=== PATIENT | female | born 1935 | race Caucasian/White ===

== ENCOUNTER 2025-01-15 12:19 | Emergency (ER) | payer MEDICARE ==
[~2025-01-15] VITALS: Ht 162.6 cm; Wt 54.5 kg
--- NOTE | 2025-01-15 13:17 | Physician Documentation ---
History of Present Illness ~ Chief Complaint: Hip pain Stated Complaint: HIP PAIN Time Seen by MD: 12:46 Primary Medical Doctor: SUE Source: patient Mode of Arrival: Ambulatory Exam Limitations: no limitations HPI Chief Complaint: Muscle spasms in lower extremities, lower extremity pain Caveat: None Independent Historians: None History of Present Illness: Patient is a 89-year-old woman who comes in complaining of muscle spasms in her lower extremities feet and thighs that have been severe since last Saturday. Over the last three days she states she has she has had to use a walker because she is too weak in the left lower extremity. Patient denies any bowel incontinence or urinary retention. No fever. No abdominal pain. Patient states that she is able to work out the muscle spasms. She then goes on to say that she had a recent MRI for spinal stenosis in the lower back. 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 Patient is not on any blood thinners. Review of systems: All systems were reviewed and are negative except for what is indicated in the history of present illness. Past Medical History: Lymphoma of lumbar spine , hyperlipidemia Past Surgical History: Kyphoplasty lumbar spine Social History: No tobacco use, no alcohol use, no drug use Medications: Reviewed as documented Nursing Notes Allergies: Reviewed as documented in Nursing Notes Medication Reconciliation Allergies: Coded Allergies: No Known Allergies (Unverified , 01/15/25) Review of Systems All Other Systems at this time: Reviewed and Negative ROS Patient denies any other acute symptoms other than above. All other systems are negative Physical Exam Vital Signs: RN Vital Signs have been reviewed: Yes, Heart Rate: 82, Respiratory Rate: 16, BP: 127/76, Pulse Oximetry: 98, Weight: 54.550 Pulse Oximetry Reflects: adequate oxygenation Physical Exam General Appearance: Mild distress HEENT: Normal OP, moist oral mucosa, PERRL, EOMI Neck: supple, normal ROM, trachea midline Pulmonary: No respiratory distress, CTA, BS equal Cardiac: RRR, no murmur, rub or gallop, GI: nondistended, soft, nontender, normal bowel sounds, no guarding, no rebound Extremities: normal ROM, no swelling, non-tender Skin: intact, dry, warm, no rashes Neuro: AAOx3, speech is clear, weakness in the left lower extremity is difficult to ascertain because of pain left lower extremity. However she is weak in the hip flexors and leg extension on exam compared to the right. Psych: normal affect, good eye contact, no apparent hallucination, normal speech Progress Results/Orders Results/Orders Orders - VY WHITEHEAD MD Mri Head (01/15/25 13:04) Mri Lumbar Spine (01/15/25 13:04) Chest,Single View (01/15/25 13:38) Cult Urine + [place] [address] (01/15/25 13:59) Completed Orders - VY WHITEHEAD MD Mri Head (01/15/25 13:04) Mri Lumbar Spine (01/15/25 13:04) Electrocardiogram (01/15/25 13:38) Pt Inr (01/15/25 13:38) PTT (01/15/25 13:38) Chest,Single View (01/15/25 13:38) CMP (01/15/25 13:38) Ua W/Microscopic, Cult If Ind (01/15/25 13:38) Morphine 4mg/Ml Inj. (Morphine Inj.) (01/15/25 15:15) Ondansetron Inj. (Zofran 4mg/2ml Vial) (01/15/25 15:15) Cbc/Diff (01/15/25 18:00) Vital Signs 01/15/25 01/15/25 01/15/25 01/15/25 12:28 15:17 15:25 20:04 Pulse 82 68 Resp 16 18 18 16 B/P (MAP) 127/76 114/63 (80) Pulse Ox 98 98 O2 Flow Rate 0 01/15/25 01/15/25 01/15/25 01/15/25 20:08 21:24 21:28 22:21 Temp 97.7 Pulse 72 73 72 Resp 16 16 14 16 B/P (MAP) 118/61 (80) 129/71 (90) 145/79 (101) Pulse Ox 95 97 98 O2 Flow Rate 0 01/15/25 22:26 Resp 16 Laboratory Tests Test 01/15/25 13:38 01/15/25 13:50 Urine Specimen Description Cln catch midstream Urine Color Yellow Urine Clarity Clear Urine pH 6.0 Urine Specific [place] 1.010 Urine Protein Negative Urine Glucose (UA) Negative Urine Ketones Negative Urine Occult Blood Negative Urine Nitrite Negative Urine Bilirubin Negative Urine Urobilinogen 0.2 Urine Leukocyte Esterase Small H Urine RBC 10-20 Urine WBC Tntc H Urine WBC Clumps Few Urine Squamous Epithelial Cells Few Urine Bacteria 4+ Urine Mucus Few Urine Culture Indicated Indicated Volume Urine Centrifuged 10 ml Urine Comment White Blood Count 6.2 Red Blood Count 4.44 Hemoglobin 13.5 Hematocrit 39.5 Mean Corpuscular Volume 89.0 Mean Corpuscular Hemoglobin 30.5 Mean Corpuscular Hemoglobin Concent 34.2 Red Cell Distribution Width 13.6 Platelet Count 186 Mean Platelet Volume 8.6 Neutrophils (%) (Auto) 79.9 H Lymphocytes (%) (Auto) 12.6 L Monocytes (%) (Auto) 5.6 Eosinophils (%) (Auto) 1.4 Basophils (%) (Auto) 0.5 Neutrophils # (Auto) 5.0 Lymphocytes # (Auto) 0.8 L Monocytes # (Auto) 0.3 Eosinophils # (Auto) 0.1 Basophils # (Auto) 0.0 CBC Comment Prothrombin Time 10.8 INR International Normalized Ratio 1.1 Activated Partial Thromboplast Time 24 Coagulation Comments Sodium Level 143 Potassium Level 4.0 Chloride Level 105 Carbon Dioxide Level 30.2 Anion Gap 8 Blood Urea Nitrogen 27 H Creatinine 0.79 Estimated GFR/1.73 m2 69 BUN/Creatinine Ratio 34.2 H Glucose Level 164 H Calcium Level 8.5 Total Bilirubin 0.4 Aspartate Amino Transf (AST/SGOT) 17 Alanine Aminotransferase (ALT/SGPT) 25 Alkaline Phosphatase 101 Total Protein 6.4 Albumin 3.7 Globulin 2.7 Albumin/Globulin Ratio 1.4 Chemistry Comments Microbiology Date/Time Source Procedure Growth Status 01/15/25 13:59 Urine Clean Catch Midstream Urine Culture - Preliminary Culture received. Resulted Medical Decision Making Findings Differential diagnosis includes but is not limited to: Acute CVA, spinal stenosis, cauda equina syndrome MRI of brain without IV contrast, indication: Left lower extremity weakness Impression: No evidence of acute intracranial abnormalities. MRI of lumbar spine without IV contrast, indication: Lower extremity weakness with history of spinal canal stenosis Impression: 1. There is a large heterogeneous lesion at the level of the L3/L4 vertebral body level spinal canal measuring 1.0 x 0.7 x 3.0 cm. This appears to be extradural in location. This results in severe spinal canal stenosis at the L3 vertebral body level. There is moderate spinal canal stenosis at the L4 level. Recommend MRI lumbar spine with contrast to further characterize this lesion /mass/neoplasm. Stat neurosurgical consultation recommended for further management. 2. Multiple compression deformities of the L1 through L5 vertebral bodies as described above with associated mild marrow edema signal. These could represent subacute or chronic fractures. Correlate with clinical history and pain symptoms. 3. More pronounced marrow edema and T1 hypointense signal at S3/S4 concerning for fracture versus aggressive lesion/ metastatic disease/neoplasm. Laboratory data independent interpretation: CBC: CMP: Unremarkable Urinalysis: Emergency department course/medical decision-making: Patient was a pleasant 89-year-old woman who presents with complaints of pain in the left lower extremity and muscle spasms I have gotten worse. But upon further questioning she has not been able to walk secondary to the pain and weakness in the left lower extremity that began three days ago. Patient states that she had a recent MRI of the lumbar spine for spinal stenosis. Patient is not having any other neurological symptoms like bowel incontinence or urinary retention. Concern for recurrence of the lymphoma causing L3 spinal stenosis secondary to compression of a small lesion/mass measuring approximately 1 x 3 cm. Consultation/communications: 5:52 p.m.: Request for call to Neurosurgery at [facility] Departure Time of Disposition: 17:53 Disposition: 02 SHORT TERM HOSPITAL Impression: Primary Impression: Spinal stenosis L3 Condition: Guarded Education Educated: Patient Educated regarding: diagnosis, treatment Signature Scribe Signature: No scribe Attestation: No scribe VY WHITEHEAD MD January 15, 2025 13:17
[2025-01-15] MEDS ORDERED: LIDO700A47 TOP (13:20)
[2025-01-15 13:48] LABS: BILIRUBIN,URINE NEGATIVE (Neg); CLARITY,URINE CLEAR (Clear); COLOR,URINE YELLOW (Yellow); GLUCOSE, URINE NEGATIVE (Neg); KETONES,URINE NEGATIVE (Neg); LEUKOCYTE ESTERASE ,URINE SMALL (Neg); NITRITES, URINE NEGATIVE (Neg); OCCULT BLOOD,URINE NEGATIVE (Neg); PROTEIN,URINE NEGATIVE (Neg); UROBILINOGEN,URINE 0.2 E.U/dL (0.2-1.0)
[2025-01-15 13:57] LABS: UA COLLECTION TYPE CLN CATCH MIDSTREAM
[2025-01-15 13:58] LABS: WBC,URINE TNTC /HPF (0-4)
[2025-01-15 13:59] LABS: BACTERIA,URINE 4+ /HPF (Neg); MUCUS STRANDS FEW /LPF (Neg); SQUAMOUS EPITHELIAL CELL,UR FEW /LPF (FEW); WBC CLUMPS,URINE FEW /HPF (NEGATIVE)
--- NOTE | 2025-01-15 14:06 | RADIOLOGY REPORT ---
CHEST RADIOGRAPH Indication: Stroke Alert Technique: Single frontal view of the chest was obtained Comparison: None FINDINGS: Lines and Tubes: None Lungs: No focal consolidation. Senescent changes of the lungs. Pleura: No effusion. No pneumothorax. Cardiomediastinal contours: Unremarkable Bones: No acute osseous abnormality. IMPRESSION: No acute cardiopulmonary disease.
[2025-01-15 14:11] LABS: APTT 24 SECONDS (22-32); INR 1.1 INR; PROTHROMBIN TIME 10.8 SECONDS (9.0-12.0)
[2025-01-15 14:15] LABS: ALANINE AMINOTRANSFERASE 25 U/L (12-78); ALBUMIN 3.7 G/DL (3.4-5.0); ALBUMIN/GLOBULIN RATIO 1.4 (1.1-1.5); ALKALINE PHOSPHATASE 101 IU/L (46-116); ANION GAP 8 (8-16); ASPARTATE AMINO TRANSFERASE 17 U/L (10-37); BILIRUBIN,TOTAL 0.4 MG/DL (0.1-1.0); BLOOD UREA NITROGEN 27 MG/DL (7-18); BUN/CREATININE RATIO 34.2 (10.0-20.0); CALCIUM 8.5 MG/DL (8.5-10.1); CHLORIDE 105 MMOL/L (99-107); CREATININE 0.79 MG/DL (0.40-0.90); GLUCOSE 164 MG/DL (70-104); SODIUM 143 MMOL/L (135-145); TOTAL CARBON DIOXIDE 30.2 MMOL/L (24-32); TOTAL PROTEIN 6.4 G/DL (6.4-8.2); eCRCL 42 ML/MIN; eGFR 69 ML/MIN
--- NOTE | 2025-01-15 14:50 | ELECTROCARDIOGRAPH REPORT ---
[facility] Test Date: 2025-01-15 Test Time: 13:50:59 Pat Name: HOOD NOWAK Department: EMERGENCY ROOM Room: Gender: F Chemical Treatment Operator: PATRICK : [id number] Requested By: VY WHITEHEAD Order Number: [id number] Reading MD: Measurements Intervals [place] Rate: 71 P: 56 OK: 225 QRS: -26 QRSD: 97 T: 29 QT: 435 QTc: 473 Interpretive Statements Sinus rhythm Prolonged OK interval Borderline left axis deviation Probable anteroseptal infarct, old Please click the below link to view image of tracing.
[2025-01-15] MEDS: morphine 4 MG/ML inj SYRINge IV ONE ×2 (15:17→21:24)
[2025-01-15] MEDS: ondansetron/PF 4mg/2ml inj IV ONE (15:17)
--- NOTE | 2025-01-15 16:53 | RADIOLOGY REPORT ---
EXAM: MR MRI HEAD CLINICAL HISTORY: left lower extremity weakness COMPARISON: None TECHNIQUE: Multiplanar, multisequence magnetic resonance imaging of the brain was performed after the administra tion of intravenous contrast. FINDINGS: Moderate diffuse brain atrophy. [id number] chronic small-vessel ischemic changes. No evidence of acute /subacute intracranial hemorrhage on T1 and T2 with the blood sensitive sequence and FLAIR sequence not provided. No masses, mass effect, midline shift, herniation or cytotoxic edema following a large vascular tj tory. No intra-axial or extra-axial fluid collections. No evidence of hydrocephalus. The basal cister ns are patent. The visualized vascular flow voids are maintained. The pituitary gland, sella and parasellar regions unremarkable. The cerebellar tonsils are in normal position. The cerebellum is unremarkable. There is bilateral lens replacement. Otherwise, orbits and globes are unremarkable. Mild mucoperiost eal thickening of the ethmoid air cells. The remainder of the paranasal sinuses and mastoids are yony r. There are No worrisome calvarial lesions. IMPRESSION: No evidence of acute intracranial abnormalities.
--- NOTE | 2025-01-15 17:25 | RADIOLOGY REPORT ---
PROCEDURE: MR MRI LUMBAR SPINE Indication: left lower extremity weakness COMPARISON: None TECHNIQUE: Multiplanar multisequence images of the the lumbar spine are obtained. FINDINGS: Examination degraded by motion. For the purpose of this examination, there are 5 lumbar vertebral body types counting from the lumbos acral junction. There is a large heterogeneous lesion at the level of the L3/L4 vertebral body level spinal canal maryann suring 1.0 x 0.7 x 3.0 cm. This appears to be extradural in location. This results in severe spinal canal stenosis at the L3 vertebral body level with near-complete effacement of the thecal sac. Ther e is moderate spinal canal stenosis at the L4 level. Compression deformities of the lumbar spine diffusely including L1 50% loss of height, L2 25% loss of height, L3 50% loss height, L4 40% loss height, L5 20% loss height. Possible vertebroplasty changes at L1, L3 and L4. There is marrow edema signal within the L2, L3, L4 and L5 vertebral bodies. There is also marrow edema signal within the sacrum at S3, S4 with associated T1 hypointense signal. T12-L1: Thecal sac measures 10 mm AP. No spinal canal stenosis. Severe bilateral neural foraminal casey nosis. L1-2: Small disc osteophyte complex. Thecal sac measures 10 mm AP. No spinal canal stenosis. Severe r ight and moderate to severe left neural foraminal stenosis. L2-3: 3 mm disc protrusion. Severe right and moderate left neural foraminal stenosis. Severe spinal canal stenosis. L3-4: 3 mm disc protrusion. Severe spinal canal stenosis. Severe bilateral neural foraminal stenosis . L4-5: 2 mm disc protrusion. Moderate facet and flavum hypertrophy. Thecal sac measures 11 mm AP. No s jona canal stenosis. Moderate bilateral neural foraminal stenosis. L5-S1: 3 mm disc protrusion. Moderate facet and flavum hypertrophy. No spinal canal stenosis. Severe bilateral neural foraminal stenosis. The conus terminates at the level of the L2 vertebral body level. Colonic diverticular disease. IMPRESSION: 1. There is a large heterogeneous lesion at the level of the L3/L4 vertebral body level spinal canal measuring 1.0 x 0.7 x 3.0 cm. This appears to be extradural in location. This results in severe spi nal canal stenosis at the L3 vertebral body level. There is moderate spinal canal stenosis at the L4 level. Recommend MRI lumbar spine with contrast to further characterize this lesion /mass/neoplasm. Stat neurosurgical consultation recommended for further management. 2. Multiple compression deformities of the L1 through L5 vertebral bodies as described above with ass ociated mild marrow edema signal. These could represent subacute or chronic fractures. Correlate wi th clinical history and pain symptoms. 3. More pronounced marrow edema and T1 hypointense signal at S3/S4 concerning for fracture versus agg ressive lesion/ metastatic disease/neoplasm.
[2025-01-15 18:35] LABS: BASOPHILS % (AUTO) 0.5 % (0-1); EOSINOPHILS # (AUTO) 0.1 X10'3 (0-0.9); EOSINOPHILS % (AUTO) 1.4 % (0-6); HEMATOCRIT 39.5 % (35.0-45.0); HEMOGLOBIN 13.5 g/dl (12.0-16.0); LYMPHOCYTES # (AUTO) 0.8 X10'3 (1.1-4.8); LYMPHOCYTES % (AUTO) 12.6 % (21-51); MEAN CORPUSCULAR HEMOGLOBIN 30.5 PG (27.0-31.0); MEAN CORPUSCULAR HGB CONC 34.2 g/dL (33.0-36.5); MEAN PLATELET VOLUME 8.6 FL (7.4-10.4); MONOCYTES # (AUTO) 0.3 X10'3 (0-0.9); MONOCYTES % (AUTO) 5.6 % (2-12); NEUTROPHILS % (AUTO) 79.9 % (42-75); PLATELET COUNT 186 X10'3 (140-440); RED BLOOD COUNT 4.44 X10'6 (4.20-5.60); RED CELL DISTRIBUTION WIDTH 13.6 % (11.5-14.5); WHITE BLOOD COUNT 6.2 X10'3 (4.5-11.0)
[2025-01-15 21:28] VITALS: TEMP 97.7
[2025-01-15 22:21] VITALS: BP 145/79; PULSE 72; O2SAT 98
[2025-01-15 22:26] VITALS: RESP 16
== END 2025-01-15 23:23 | disposition short-term general hospital (02) ==
LOC: ER 12:19
DX: M48.061 Spinal stenosis, lumbar region without neurogenic claudication (principal); E78.5 Hyperlipidemia, unspecified
CPT/HCPCS: 36415; 70551; 71045; 72148; 80053; 81001; 85025; 85610; 85730; 87077; 87088; 87186; 93005; 96374; 96375; 96376; 99285; J2270; J2405